=== PATIENT | male | born 1960 | race Two or more races ===

== ENCOUNTER 2020-12-09 06:05 | Day surgery (SDC) | payer OTHER ==
[~2020-12-09 06:05] MED LIST: CHILDREN'S ASPI81 MG PO; LOSARTAN POTASS25 MG PO; TENORMIN100 M1 PO; UROXATRAL10 MG
== END 2020-12-09 12:30 | disposition home or self-care (01) ==
LOC: CIR.AMB 06:05
PROVIDERS: ATTEND Colon & Rectal Surgery
DX: D12.8 Benign neoplasm of rectum (principal); K64.8 Other hemorrhoids; K60.1 Chronic anal fissure; K64.4 Residual hemorrhoidal skin tags; Z20.822 Contact with and (suspected) exposure to COVID-19